=== PATIENT | male | born 1990 | race Caucasian/White ===

== ENCOUNTER 2020-08-29 06:44 | Emergency (ER) | payer OTHER ==
[~2020-08-29] VITALS: Ht 185.4 cm; Wt 82.0 kg
--- NOTE | 2020-08-29 06:45 | NUR ---
PT WAS IN THE MIDDLE OF DEBRIEF AT [facility] WHEN HE FELT A SHARP SUDDEN PAIN IN THE R-[place]S. PER HIS PARTNER, PT WAS PALE AND DIAPHORETIC ON THE WAY TO THE ED. PT DENIES PAIN RADIATING, DENIES ANY TROUBLE URINATING, N/V. PT STATES PAIN IS NOW A 1/10. NADN/VSS. PT CHANGED INTO GOWN, CALL LIGHT WITHIN REACH. BED IN LOWEST POSITION.
[2020-08-29] MEDS ORDERED: BUPR-86 PO (06:54)
[2020-08-29] MEDS ORDERED: DULO60CA7 PO (06:54)
--- NOTE | 2020-08-29 07:10 | NUR ---
PA AT BS
--- NOTE | 2020-08-29 07:15 | NUR ---
PT UNABLE TO VOID AT THIS TIME
[2020-08-29 07:41] LABS: BASOPHILS % (AUTO) 1 % (0-1); EOSINOPHILS % (AUTO) 3 % (1-7); LYMPHOCYTES % (AUTO) 20 % (22-44); MEAN CORPUSCULAR HEMOGLOBIN 29.3 pg (27.5-34.5); MEAN CORPUSCULAR HGB CONC 33.7 g/dL (33.2-36.2); MEAN PLATELET VOLUME 6.9 fL (7.4-10.4); MONOCYTES % (AUTO) 8 % (2-9); NEUTROPHILS % (AUTO) 70 % (42-75); PLATELET COUNT 294 x10^3/uL (130-400); RED BLOOD COUNT 4.75 x10^6/uL (4.38-5.82); RED CELL DISTRIBUTION WIDTH 12.8 % (9.4-14.8)
--- NOTE | 2020-08-29 07:45 | NUR ---
PT AMBULATORY TO BR WITH UPRIGHT STEADY GAIT
[2020-08-29 07:52] LABS: ALANINE AMINOTRANSFERASE 31 U/L (12-78); ALBUMIN 3.4 g/dL (3.4-5.0); CALCIUM 8.5 mg/dL (8.5-10.1); CREATININE 1.13 mg/dL (0.7-1.3)
[2020-08-29 07:54] LABS: ALKALINE PHOSPHATASE 53 U/L (45-117); BILIRUBIN,TOTAL 0.2 mg/dL (0.2-1.0); TOTAL PROTEIN 6.8 g/dL (6.4-8.2)
[2020-08-29 08:05] LABS: MICROSCOPIC INDICATED
[2020-08-29 08:05] LABS: ANION GAP 6 mmol/L (5-15); CHLORIDE 111 mmol/L (98-107)
--- NOTE | 2020-08-29 08:26 | NUR ---
PA AT BS
--- NOTE | 2020-08-29 08:40 | NUR ---
PT TO CT
--- NOTE | 2020-08-29 08:54 | NUR ---
PT BACK FROM CT, CONNECTED TO MONITORS. CALL LIGHT WITHIN REACH
[2020-08-29 09:50] VITALS: BP 109/78
--- NOTE | 2020-08-29 09:50 | NUR ---
PT RESTING ON GURNEY, NADN/VSS. PT DENIES ANY PAIN. CALL LIGHT WITHIN REACH. BED IN LOWEST POSITION, BED RAILS UP X2.
--- NOTE | 2020-08-29 10:24 | NUR ---
Patient given discharge instructions and they have confirmed that they understand the instructions. Patient ambulatory with steady gait.
== END 2020-08-29 10:25 | disposition home or self-care (01) ==
LOC: ED 08:36
DX: R10.31 Right lower quadrant pain (principal)
CPT/HCPCS: 36415; 74176; 80053; 81001; 85025; 87086; 99284